=== PATIENT | female | born 1985 | race Caucasian/White ===

== ENCOUNTER 2016-07-31 08:54 | Emergency (ER) | payer SELFPAY ==
[2016-07-31] MEDS ORDERED: KETOROLAC 60 MG/2 ML VIAL IM ONE (20:56)
[2016-07-31] MEDS ORDERED: ORPHENADRINE 60 MG/2 ML AMP ONE (20:56)
== END 2016-07-31 10:30 | disposition home or self-care (01) ==
LOC: ER 08:54
DX: L30.9 Dermatitis, unspecified (principal)